=== PATIENT | female | born 1995 | race Two or more races ===

== ENCOUNTER → 2019-03-08 | Emergency (ER) | payer OTHER ==
[~2019-03-08] VITALS: Ht 172.7 cm; Wt 70.8 kg
== END | disposition home or self-care (01) ==
LOC: ER 20:26
DX: B00.1 Herpesviral vesicular dermatitis (principal)

== ENCOUNTER 2023-01-26 08:25 | Emergency (ER) | payer OTHER ==
[~2023-01-26] VITALS: Ht 170.2 cm; Wt 77.1 kg
[2023-01-26] MEDS ORDERED: KETO10TA2 PO ×2 (11:41→11:43)
[2023-01-26] MEDS ORDERED: NORFLEX100MG PO (11:43)
== END 2023-01-26 12:46 | disposition home or self-care (01) ==
LOC: ER 08:25
DX: M54.2 Cervicalgia (principal); V43.52XA Car driver injured in collision with other type car in traffic accident, initial encounter; Y93.89 Activity, other specified; Y92.413 State road as the place of occurrence of the external cause; M40.40 Postural lordosis, site unspecified